=== PATIENT | female | born 1970 | race Caucasian/White ===

== ENCOUNTER 2019-05-08 18:47 | Emergency (ER) | payer OTHER ==
[2019-05-08] MEDS ORDERED: HYDROcodone 10MG/APAP 325MG 1 EA TAB PO ONE (19:10)
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
--- NOTE | 2019-05-08 20:13 | RAD ---
EXAM DESCRIPTION: Shoulder,Left 2 or More Views CLINICAL HISTORY: trauma COMPARISON: None FINDINGS: Two x-ray views of the left shoulder were submitted. There is no acute fracture or dislocation. Bone mineralization is within normal limits. There is no radiopaque foreign body material. IMPRESSION: No acute fracture or dislocation. Electronically signed by: Renzo Benavides MD 05/08/2019 8:11 PM CDT
[2019-05-08 20:55] VITALS: BP 152/93; TEMP 98.6; O2SAT 99
== END 2019-05-08 20:55 | disposition home or self-care (01) ==
LOC: ER 18:47
DX: S40.022A Contusion of left upper arm, initial encounter (principal); Z88.0 Allergy status to penicillin; V49.49XA Driver injured in collision with other motor vehicles in traffic accident, initial encounter; Y92.410 Unspecified street and highway as the place of occurrence of the external cause